=== PATIENT | female | born 1975 | race Caucasian/White ===

== ENCOUNTER 2017-10-31 11:47 | Emergency (ER) | payer OTHER ==
[~2017-10-31] VITALS: Ht 160 cm; Wt 83.5 kg
[2017-10-31] MEDS ORDERED: DIPHENHYDRAMINE HCL INJ 50 MG/ML VIAL IV STA (12:40)
[2017-10-31] MEDS ORDERED: MECLIZINE HCL 12.5 MG TAB PO STA (12:40)
[2017-10-31] MEDS ORDERED: SODIUM CHLORIDE 0.9% 1000ML 1,000 ML IV STA (12:40)
[2017-10-31] MEDS ORDERED: METOCLOPRAMIDE HCL 10 MG/2ML VIAL IV STA (12:40)
[2017-10-31 13:14] LABS: BASOPHILS # (AUTO) 0.1 (0.0-0.1); BASOPHILS % 1.1 % (0.0-1.0); EOSINOPHILS # (AUTO) 0.1 (0.0-0.4); EOSINOPHILS % 1.6 % (0.0-6.0); HEMATOCRIT 42.7 % (34.2-44.1); HEMOGLOBIN 14.7 g/dL (12.0-16.0); LYMPHOCYTES # (AUTO) 2.2 (1.0-3.2); LYMPHOCYTES % 39.6 % (18.0-39.1); MEAN CORPUSCULAR HEMOGLOBIN 31.8 pg (28-32); MEAN CORPUSCULAR HGB CONC 34.4 g/dL (31-35); MEAN CORPUSCULAR VOLUME 92.4 fL (81-99); MONOCYTES # (AUTO) 0.4 (0.2-0.8); MONOCYTES % 6.5 % (4.4-11.3); NEUTROPHILS # (AUTO) 2.9 (2.1-6.9); NEUTROPHILS % 50.8 % (38.7-80.0); PLATELET COUNT 245 x10e3/uL (140-360); RED BLOOD COUNT 4.62 x10e6/uL (3.6-5.1)
[2017-10-31 13:30] LABS: ALANINE AMINOTRANSFERASE 36 IU/L (0-55); ALBUMIN 4.1 g/dL (3.5-5.0); ALBUMIN/GLOBULIN RATIO 1.1 (0.8-2.0); ALKALINE PHOSPHATASE 50 IU/L (40-150); ANION GAP 12.9 mmol/L (8-16); BLOOD UREA NITROGEN 10 mg/dL (7-26); BUN/CREATININE RATIO 13 (6-25); CALCIUM 9.6 mg/dL (8.4-10.2); CARBON DIOXIDE 27 mmol/L (22-29); CHLORIDE 107 mmol/L (98-107); CREATINE KINASE 95 IU/L (29-168); CREATININE, SERUM 0.78 mg/dL (0.57-1.11); EST GLOMERULAR FILTRATION RATE > 60 ML/MIN (60-); GLUCOSE 90 mg/dL (74-118); POTASSIUM 3.9 mmol/L (3.5-5.1); SODIUM 143 mmol/L (136-145)
[2017-10-31 13:42] LABS: CLARITY,URINE CLOUDY (CLEAR); COLOR,URINE YELLOW (YELLOW); LEUKOCYTE ESTERASE ,URINE TRACE (NEGATIVE); NITRITE,URINE NEGATIVE (NEGATIVE); PROTEIN,URINE DIPSTICK NEGATIVE (NEGATIVE)
[2017-10-31 13:43] LABS: BILIRUBIN,URINE NEGATIVE (NEGATIVE); KETONES,URINE NEGATIVE (NEGATIVE); URINE UROBILINOGEN 0.2 mg/dL (0.2 - 1)
--- NOTE | 2017-10-31 13:49 | Diagnostic Imaging Report ---
PROCEDURE:CHEST SINGLE (PORTABLE) TECHNIQUE:Portable AP chest INDICATION:High blood pressure; vertigo COMPARISON:None. FINDINGS: Obscuration of the right heart margin. Lungs otherwise clear. No pleural effusions. Upper limits of normal heart size for technique. Normal central vasculature. Intact skeleton. Patient is rotated to the left. CONCLUSION: Questionable right middle lobe airspace opacity such as from pneumonia. 2 view chest radiograph recommended when clinically feasible. Dictated by: Jovan Contreras M.D. on 10/31/2017 at 13:52 Electronically approved by: Jovan Contreras M.D. on 10/31/2017 at 13:52
[2017-10-31 13:58] LABS: WBC,URINE (MAN) 21-50 /HPF (0-5)
[2017-10-31 13:59] LABS: BACTERIA,URINE RARE /HPF; EPITHELIAL CELLS,URINE RARE /LPF; TRANSITIONAL EPI CELLS,URINE FEW
[2017-10-31 14:22] VITALS: BP 128/81
== END 2017-10-31 14:35 | disposition home or self-care (01) ==
LOC: ER 11:47
DX: G43.901 Migraine, unspecified, not intractable, with status migrainosus (principal); R05 Cough; J15.9 Unspecified bacterial pneumonia; M54.5 Low back pain; I10 Essential (primary) hypertension; E11.9 Type 2 diabetes mellitus without complications
CPT/HCPCS: 36415; 71045; 80053; 81001; 82550; 82553; 84484; 85025; 93005; 99283; J1200; J2765; J7030

== ENCOUNTER 2021-12-04 21:16 | Emergency (ER) | payer OTHER ==
[~2021-12-04] VITALS: Ht 160 cm; Wt 83.5 kg
[2021-12-04] MEDS ORDERED: NAPROSYN500 MG PO (21:35)
[2021-12-04] MEDS ORDERED: CLEOCIN HCL300 MG PO (21:35)
== END 2021-12-04 21:50 | disposition home or self-care (01) ==
LOC: ER 21:27
DX: K08.89 Other specified disorders of teeth and supporting structures (principal); K02.9 Dental caries, unspecified; E11.9 Type 2 diabetes mellitus without complications; I10 Essential (primary) hypertension; G80.9 Cerebral palsy, unspecified
CPT/HCPCS: 99283

== ENCOUNTER 2022-08-11 21:39 | Emergency (ER) | payer MEDICARE, MEDICAID ==
[~2022-08-11] VITALS: Ht 160 cm; Wt 83.5 kg
[~2022-08-11 21:39] MED LIST: CLEOCIN HCL300 MG PO; NAPROSYN500 MG PO
[2022-08-11] MEDS ORDERED: SODIUM CHLORIDE 0.9% 1000ML 1,000 ML IV STA (21:58)
[2022-08-11] MEDS ORDERED: LORAZEPAM INJ 2 MG/ML VIAL IV STA (21:58)
[2022-08-11] MEDS ORDERED: XANAX0.25 MG PO (22:28)
[2022-08-11 23:08] VITALS: BP 149/114
== END 2022-08-11 23:09 | disposition home or self-care (01) ==
LOC: ER 21:49
DX: F43.81 Prolonged grief disorder (principal); I10 Essential (primary) hypertension; E11.9 Type 2 diabetes mellitus without complications; M41.9 Scoliosis, unspecified; G80.9 Cerebral palsy, unspecified
CPT/HCPCS: 99284